=== PATIENT | female | born 1990 | race Hispanic/Latino ===

== ENCOUNTER 2017-09-03 18:14 | Emergency (ER) | payer OTHER ==
[2017-09-03 18:22] VITALS: BP 154/82; PULSE 72; RESP 16; TEMP 98.1; O2SAT 100
--- NOTE | 2017-09-03 18:29 | ED PDOC ---
HPI: Wound Care - HPI Time Seen by Provider: 09/03/17 18:23 Chief Complaint (Nursing): Abnormal Skin Integrity Chief Complaint (Provider): finger laceration History Per: Patient Exam Limitations: no limitations Onset/Duration Of Symptoms: Mins (prior to arrival) Current Symptoms Are (Timing): Still Present Additional Complaint(s): 27 year old right hand dominant female presents to the ED with laceration to left index finger. Patient reports she was cutting onions with a sharp knife when she cut her left index finger. Patient applied pressure dressing and came to ED. Patient states tetanus is up-to-date. She is able to bend her finger and denies any numbness or tingling to affected area. PMD: none provided Past Medical History Reviewed: Historical Data, Nursing Documentation, Vital Signs Vital Signs: Last Vital Signs Temp 98.1 F 09/03/17 18:18 Pulse 72 09/03/17 18:18 Resp 16 09/03/17 18:18 BP 154/82 H 09/03/17 18:18 Pulse Ox 100 09/03/17 18:18 - Medical History PMH: No Chronic Diseases - Surgical History Surgical History: No Surg Hx - Family History Family History: States: No Known Family Hx - Living Arrangements Living Arrangements: With Friends/Others - Social History Current smoker - smoking cessation education provided: No Alcohol: Social Drugs: Denies - Immunization History Hx Tetanus Toxoid Vaccination: Yes - Home Medications Home Medications: Ambulatory Orders Medication Instructions Recorded Cephalexin [Keflex] 500 mg PO TID #21 capsule 09/03/17 - Allergies Allergies/Adverse Reactions: Allergies Allergy/AdvReac Type Severity Reaction Status Date / Time No Known Allergies Allergy Verified 09/03/17 18:18 Review of Systems ROS Statement: Except As Marked, All Systems Reviewed And Found Negative Skin: Positive for: Other (laceration to left index finger) Physical Exam - Reviewed Nursing Documentation Reviewed: Yes Vital Signs Reviewed: Yes - Physical Exam Appears: Positive for: Well, Non-toxic, No Acute Distress Head Exam: Positive for: ATRAUMATIC, NORMAL INSPECTION, NORMOCEPHALIC Skin: Positive for: Normal Color. Negative for: Rash Eye Exam: Positive for: EOMI, Normal appearance, PERRL Extremity: Positive for: Other (3 cm flap laceration to dorsal aspect of left index finger just proximal to PA and AP, minimal active bleeding, full range of motion of the digits, normal distal sensation) Neurologic/Psych: Positive for: Alert, Oriented - ECG O2 Sat by Pulse Oximetry: 100 (RA) Pulse Ox Interpretation: Normal Procedure: Wound Repair - Time Performed Time Performed: 20:21 - Time Out Time Out: Side verified, Site verified, Patient ID confirmed, Sterile procedures obs. - Procedure Procedure: Wound Repair: 4 cm flap lac to left index finger - Consent Obtained Consent obtained: Verbal - Performed by Performed by: Mid-level Provider - Indications Indication(s):: Laceration - Location Location:: Left Finger:: Index Shape:: Other (flap) Dimensions Length cm: 4 Dimensions width cm: 1 Depth:: Epidermis - Anesthetic Technique Local/Regional Anesthetic:: Lidocaine 1% (digital block to left index finger) - Wound Examination Wound Examination:: Other (Irregular flap margins were revised and re-aligned as best as possible, good wound approximation was achieved) - Debris Debris:: None - Irrigated Irrigated with ml of normal saline: 50 - Complexity Complexity:: Simple (one layer) - Wound repair method Sutures:: # (7), Size (5-0), Type (nylon), Technique (interuupted) - Muscle repiar layer closed with Muscle repair layer closed with:: Wound well approximated, Abx ointment applied , Tetanus up to date - Patient tolerated procedure Patient Tolerated Procedure:: Well Medical Decision Making Medical Decision Makin-year-old female with left index finger laceration Plan: Lac repair See procedure note. Patient was given prescription for Keflex and wound care instructions. Hand referral provided. Disposition - Clinical Impression Clinical Impression: Finger laceration - Patient ED Disposition Is Patient to be Admitted: No Counseled Patient/Family Regarding: Diagnosis, Need For Followup, Rx Given - Disposition Referrals: Jesus Alberto Rondon MD [Medical Doctor] - Disposition: Routine/Home Disposition Time: 19:43 Condition: STABLE Additional Instructions: Wash wound daily with soap and water. Apply bacitracin once per day and cover wound. Take [id number] Tylenol or Advil for pain as needed. Take prescription Confucianism directed. Follow-up with hand specialist. Suture removal 10-14 days. Prescriptions: Cephalexin [Keflex] 500 mg PO TID #21 capsule Instructions: Laceration Repair With Stitches (DC) Forms: [employer] (Kiswahili)
[2017-09-03] MEDS ORDERED: Povidone Iodine Topical 10% Sol ONE (18:46)
== END 2017-09-03 20:29 | disposition home or self-care (01) ==
LOC: H.ER 18:14
DX: S61.211A Laceration without foreign body of left index finger without damage to nail, initial encounter (principal); W26.0XXA Contact with knife, initial encounter